=== PATIENT | female | born 1945 | race Caucasian/White ===

== ENCOUNTER 2020-07-23 08:52 | Emergency (ER) | payer MEDICARE ==
[~2020-07-23] VITALS: Ht 154.9 cm; Wt 55.0 kg
[2020-07-23] MEDS ORDERED: OXYMETAZOLINE NASAL SPRAY 0.05%,30ML ONE (09:02)
[2020-07-23] MEDS ORDERED: LORazepam 1MG TABLET ONE (09:20)
[2020-07-23] MEDS ORDERED: OXYMETAZOLINE NASAL SPRAY 0.05%, 15ML NAS ONE (09:30)
[2020-07-23] MEDS ORDERED: LORazepam 0.5MG TABLET PO ONE (09:30)
--- NOTE | 2020-07-23 09:37 | NUR ---
HEAVY NOSE BLEED THIS AM (BOTH NARES). (UNKNOWN EBL) EMS REPORTS SBP 200-210 NO BLOOD THINNERS OR ANTIHYPERTENSIVES NOSE BLEED CEASED IN TRANSPORT SIGNIFICANT SOCIAL STRESS LATELY ECG ON ARRIVAL, PLACED ON ELECTRICAL CONTROLS DESIGNER MEDICATED PER EMAR FOR HTN/ANXIETY LABS/CXR
[2020-07-23 09:59] LABS: BASOPHILS % (AUTO) 0 % (0-1); EOSINOPHILS % (AUTO) 0 % (1-7); LYMPHOCYTES % (AUTO) 7 % (22-44); MEAN CORPUSCULAR HEMOGLOBIN 32.6 pg (27.0-34.8); MEAN PLATELET VOLUME 6.9 fL (7.4-10.4); MONOCYTES % (AUTO) 6 % (2-9); NEUTROPHILS % (AUTO) 87 % (42-75); PLATELET COUNT 418 x10^3/uL (130-400); RED BLOOD COUNT 4.71 x10^6/uL (3.82-5.3); RED CELL DISTRIBUTION WIDTH 12.5 % (9.6-15.2)
[2020-07-23 10:07] LABS: ALBUMIN 4.3 g/dL (3.4-5.0); ANION GAP 9 mmol/L (5-15); CALCIUM 9.4 mg/dL (8.5-10.1); CHLORIDE 95 mmol/L (98-107); CREATININE 0.71 mg/dL (0.55-1.02)
--- NOTE | 2020-07-23 10:10 | NUR ---
WITH REASSESSMENT PATIENT REPORTS "I FEEL LESS SHAKY, VERY MELLOW. THANK YOU GUYS." REMAINS WITH NO NOSEBLEED, STILL QUITE HYPERTENSIVE- WILL CONTINUE TO MONITOR
[2020-07-23 10:30] VITALS: BP 178/90
== END 2020-07-23 10:47 | disposition home or self-care (01) ==
LOC: ED 10:14
DX: R04.0 Epistaxis (principal); I10 Essential (primary) hypertension; R07.89 Other chest pain; E87.1 Hypo-osmolality and hyponatremia
CPT/HCPCS: 71045; 80048; 82040; 82962; 85025; 93005; 99285